=== PATIENT | male | born 1960 | race Caucasian/White ===

== ENCOUNTER 2017-07-10 09:12 | Inpatient (IN) | payer OTHER ==
[~2017-07-10] VITALS: Ht 182.9 cm; Wt 80.9 kg
[2017-07-10 10:46] LABS: BASOPHILS % 0.7 % (0.0-2.0); EOSINOPHILS % 0.5 % (0.0-7.0); HEMATOCRIT 40.9 % (42.0-52.0); HEMOGLOBIN 13.9 g/dl (14.0-18.0); LYMPHOCYTES # 1.4 10^3/ul (0.8-2.9); LYMPHOCYTES % 22.3 % (15.0-51.0); MEAN CORPUSCULAR HEMOGLOBIN 29.2 pg (29.0-33.0); MEAN CORPUSCULAR VOLUME 85.9 fl (82.0-101.0); MEAN PLATELET VOLUME 9.2 fl (7.4-10.4); MONOCYTE # 0.3 10^3/ul (0.3-0.9); MONOCYTES % 5.4 % (0.0-11.0); NEUTROPHIL # 4.4 10^3/ul (1.6-7.5); NEUTROPHILS % 70.9 % (39.0-77.0); PLATELET COUNT 248 10^3/UL (140-415); RED BLOOD COUNT 4.76 10^6/ul (4.70-6.10); RED CELL DISTRIBUTION WIDTH 12.5 % (11.5-14.5); WHITE BLOOD COUNT 6.1 10^3/ul (4.8-10.8)
[2017-07-10 10:56] LABS: INR 1.1; PARTIAL THROMBOPLASTIN TIME 31.5 Sec (25.0-35.0); PROTIME 14.4 Sec (11.9-14.9); PT RATIO 1.1
[2017-07-10 11:10] LABS: ALBUMIN 4.7 g/dl (3.3-4.9); ALBUMIN/GLOBULIN RATIO 1.3; BILIRUBIN,INDIRECT 0.5 mg/dl (0-1.1); BILIRUBIN,TOTAL 0.5 mg/dl (0.2-1.3); CALCIUM 9.1 mg/dl (8.4-10.2); CREATININE 0.89 mg/dl (0.61-1.24); TOTAL PROTEIN 8.3 g/dl (6.1-8.1)
--- NOTE | 2017-07-10 12:45 | RADRPT ---
PROCEDURE: CT abdomen and pelvis without contrast. CLINICAL INDICATION: Rectal bleeding TECHNIQUE: CT scan of the abdomen and pelvis without contrast was performed on a multi-slice CT [facility] . Sagittal and coronal reformatted images were obtained from the axial source images. One or more of the following dose reduction techniques were used: - Automated exposure control. - Adjustment of the mA and/or kV according to patient size. - Use of iterative reconstruction technique. DICOM images are available DLP 666.6 mGycm. CTDIvol 11.2 mGy COMPARISON: None FINDINGS: Fine detail of the soft tissues is limited secondary to the lack of IV contrast. Evaluation for enha ncing lesions cannot be performed. Lower thorax:The lung bases are clear. Liver: There is an oval-shaped hypodensity in the left hepatic lobe that measures 5.2 x 2.7 cm which is indeterminate. Biliary: The gallbladder is unremarkable without surrounding inflammation. No biliary dilatation. Pancreas: Homogeneous density of the pancreas without visible focal lesion or cystic abnormality . There is no pancreatic ductal dilatation. Spleen: Unremarkable without enlargement or focal lesion. Adrenal Glands: The adrenal glands are within normal limits without mass. Urinary: The kidneys are symmetric in size bilaterally. There are no visible renal or ureteral ston es. There is no hydronephrosis. Gastrointestinal: There is irregular ill-defined concentric wall thickening of the rectum with a tra ce amount of adjacent fat stranding. The proximal colon is distended with fecal material without obs truction. The appendix is not visualized. There is trace sigmoid diverticulosis without diverticulit is. Lymph nodes: There is a borderline lymph node to the left of the rectum that measures 6 mm on series 3, image 126. There are no other enlarged lymph nodes. Vascular: There is aortic atherosclerosis without aneurysmal dilatation. Peritoneum/mesentery: No free fluid or free air. Reproductive organs: The prostate is at the upper limits of normal in size. Musculoskeletal: Degenerative changes are seen in the lumbar spine with no acute osseous abnormalit y Other: None IMPRESSION: Indeterminate irregular concentric wall thickening of the distal rectum is seen with an adjacent bor derline lymph node. This could represent either the presence of a distal colonic mass or a focal col itis/proctitis. This can be correlated with direct visualization. There is an indeterminate hypodense mass within the left hepatic lobe. This can be further assessed with either hepatic protocol MRI or CT with contrast. There is a fecal filled colon without obstruction. There is diverticulosis without diverticulitis. T here is atherosclerotic disease present. RPTAT: AA .Camille Olmos MD, MD Date Time Electronically viewed and signed by .Camille Olmos MD, MD on 07/10/2017 12:44 .J/
[2017-07-10 13:32] VITALS: TEMP 98.3
[2017-07-10] MEDS ORDERED: ACETAMINOPHEN 325 MG TAB PO PRN ×2 (14:00→15:30)
[2017-07-10] MEDS ORDERED: ONDANSETRON 4 MG INJ IV PRN ×2 (14:00→15:30)
--- NOTE | 2017-07-10 15:08 | ERD ---
ER Documentation Chief Complaint Chief Complaint blood in stool x 5 since last night HPI 56-year-old previously healthy male presenting with blood in his stool for the past 12 hours. He states he was standing in his kitchen yesterday when he noticed some leakage from his rectum. He had no associated pain with this. He went to the bathroom and noticed he had blood leaking out of his rectum. He took a shower after which it stopped. 2 hours later he woke up with the same symptoms. Ever since then, every 2 hours he has had leakage from his rectum without attempting to have a bowel movement. The bleeding is intermittent. No associated abdominal or rectal pain. No associated fever, chills, dizziness, headache, chest pain, shortness of breath. He denies any history of rectal bleeding or ulcers. No family history of cancer or coagulopathy. No personal history of coagulopathy. Denies any constipation. ROS All systems reviewed and are negative except as per history of present illness. Medications Home Meds No Active Prescriptions or Reported Meds Allergies Allergies: Coded Allergies: No Known Allergy (Unverified , 07/10/17) PMhx/Soc History of Surgery: No Anesthesia Reaction: No Hx Neurological Disorder: No Hx Respiratory Disorders: No Hx Cardiac Disorders: No Hx Psychiatric Problems: No Hx Miscellaneous Medical Probl: Yes (HTN) Hx Alcohol Use: No Hx Substance Use: No Hx Tobacco Use: No Smoking Status: Former smoker FmHx Family History: No diabetes Physical Exam Vitals Vital Signs Date Time Temp Pulse Resp B/P Pulse Ox O2 Delivery O2 Flow Rate FiO2 07/10/17 15:01 98.2 64 16 132/86 100 Room Air 07/10/17 13:32 98.3 62 18 138/88 100 Room Air 07/10/17 12:04 98.3 58 16 149/94 100 Room Air 07/10/17 09:15 98.1 60 18 185/97 99 Physical Exam Const: Well-appearing, no apparent distress, very pleasant. Nontoxic Head: Atraumatic Eyes: Normal Conjunctiva ENT: Normal External Ears, Nose and Mouth. Neck: Full range of motion..~ No meningismus. Resp: Clear to auscultation bilaterally Cardio: Regular rate and rhythm, no murmurs. 2+ distal pulses Abd: Soft, non tender, non distended. No masses. Normal bowel sounds Rectal: Normal tone, No mass, nontender Stool: Brown with red blood Skin: No petechiae or rashes Back: No midline or flank tenderness Ext: No cyanosis, or edema Neur: Awake and alert Psych: Normal Mood and Affect Result Diagram: 07/10/17 1032 07/10/17 1032 Results 24 hrs Laboratory Tests Test 07/10/17 10:32 White Blood Count 6.110^3/ul Red Blood Count 4.7610^6/ul Hemoglobin 13.9g/dl Hematocrit 40.9% Mean Corpuscular Volume 85.9fl Mean Corpuscular Hemoglobin 29.2pg Mean Corpuscular Hemoglobin Concent 34.0g/dl Red Cell Distribution Width 12.5% Platelet Count 18145^3/UL Mean Platelet Volume 9.2fl Neutrophils % 70.9% Lymphocytes % 22.3% Monocytes % 5.4% Eosinophils % 0.5% Basophils % 0.7% Nucleated Red Blood Cells % 0.0/100WBC Neutrophils # 4.410^3/ul Lymphocytes # 1.410^3/ul Monocytes # 0.310^3/ul Eosinophils # 0.010^3/ul Basophils # 0.010^3/ul Nucleated Red Blood Cells # 0.010^3/ul Prothrombin Time 14.4Sec Prothrombin Time Ratio 1.1 INR International Normalized Ratio 1.10 Activated Partial Thromboplast Time 31.5Sec Sodium Level 142mmol/L Potassium Level 4.0mmol/L Chloride Level 102mmol/L Carbon Dioxide Level 28mmol/L Anion Gap 16 Blood Urea Nitrogen 22mg/dl Creatinine 0.89mg/dl Glucose Level 110mg/dl Calcium Level 9.1mg/dl Total Bilirubin 0.5mg/dl Direct Bilirubin 0.00mg/dl Indirect Bilirubin 0.5mg/dl Aspartate Amino Transf (AST/SGOT) 29IU/L Alanine Aminotransferase (ALT/SGPT) 37IU/L Alkaline Phosphatase 61IU/L Total Protein 8.3g/dl Albumin 4.7g/dl Globulin 3.60g/dl Albumin/Globulin Ratio 1.30 Current Medications Medications (Trade) Dose Ordered Sig/Aniya Route PRN Reason Start Time Stop Time Status Last Admin Dose Admin Ondansetron HCl (Zofran Inj) 4 mg BRIDGE ORDER PRN IV NAUSEA AND/OR VOMITING 07/10/17 14:00 07/11/17 13:59 Acetaminophen (Tylenol Tab) 650 mg ER BRIDGE PRN PO MILD PAIN/FEVER 07/10/17 14:00 07/11/17 13:59 Procedures/MDM EMERGENT LABS AND DIAGNOSTIC STUDIES: Lab Results above were reviewed and interpreted by me. CBC unremarkable BMP shows mild elevation of BUN, otherwise normal Coags within normal limits. Radiology Results as interpreted by Radiology below were reviewed by Ernie Land MD: CT abdomen and pelvis: IMPRESSION: Indeterminate irregular concentric wall thickening of the distal rectum is seen with an adjacent borderline lymph node. This could represent either the presence of a distal colonic mass or a focal colitis/proctitis. This can be correlated with direct visualization. There is an indeterminate hypodense mass within the left hepatic lobe. This can be further assessed with either hepatic protocol MRI or CT with contrast. There is a fecal filled colon without obstruction. There is diverticulosis without diverticulitis. There is atherosclerotic disease present. RPTAT: AA .Camille Olmos MD, MD Date Time Electronically viewed and signed by .Camille Olmos MD, on 07/10/2017 12:44 Initial Nursing notes reviewed. Previous Medical Records requested via the Electronic Health Record. EMERGENCY DEPARTMENT COURSE / MEDICAL DECISION MAKING: Patient is presenting with acute onset painless rectal bleeding with CT notable for rectal wall thickening. Vitals are stable. I have a low suspicion for proctitis. There is no evidence of severe GI hemorrhage. I doubt upper GI source. Differential includes but is not limited to AVM, diverticulosis, malignancy. Patient will be admitted for further workup. He will need a colonoscopy for further diagnosis. Patient agreeable with plan. I spoke with from [facility]. She will consult a GI specialist for colonoscopy. Plan was explained to the patient and he is agreeable. Departure Diagnosis: Primary Impression: Rectal bleeding Condition: KVNG Thompson MD Jul 10, 2017 15:08
[2017-07-10 15:20] VITALS: Ht 182.9 cm; Wt 80.9 kg
[2017-07-10 15:24] VITALS: BP 134/87; PULSE 72; RESP 18
[2017-07-10] MEDS ORDERED: morphine 2 MG INJ IV PRN (15:30)
[2017-07-10] MEDS ORDERED: hydrALAzine 20 MG INJ IV PRN (15:30)
[2017-07-10] MEDS ORDERED: BISACODYL 10 MG SUPP PR PRN (15:30)
[2017-07-10] MEDS ORDERED: MAGNESIUM HYDROXIDE 30ML CUP PO PRN (15:30)
[2017-07-10] MEDS ORDERED: DOCUSATE SODIUM 100 MG CAP PO PRN (15:30)
[2017-07-10] MEDS ORDERED: NACL 0.9% 3 ML SYG IV SCH (15:30)
--- NOTE | 2017-07-10 15:38 | HP ---
Date/Time of Note Date/Time of Note DATE: 07/10/17 TIME: 15:24 Assessment/Plan VTE Prophylaxis VTE Prophylaxis Intervention: SCD's Assessment/Plan Assessment/Plan 56-year-old male with: 1. Rectal bleeding, acute onset, possible rectal mass on CAT scan of the abdomen and pelvis. GI, Dr. Arora or his covering physician has been consulted Appreciate recommendations from gastroenterology, patient will be prepped for colonoscopy at least in the next 24 hours. Monitor hemoglobin Clear liquid diet and n.p.o. after midnight. IV fluids 2. Hypertension: She reports that he stopped treatment a few months ago and has been doing well, hydralazine as needed will be ordered Prophylaxis: SCDs for DVT prophylaxis, Pepcid for GI prophylaxis Disposition: Prep overnight for colonoscopy in the next 24 hours. HPI/ROS Admit Date/Time Admit Date/Time Jul 10, 2017 at 13:55 Hx of Present Illness Chief complaint: Rectal bleeding History of present illness: 56-year-old male with previous history of hypertension not recently treated, presented the emergency department with rectal bleeding. Patient reports that he had episode of small amount of blood with bowel movement 1 week ago, subsequently did not have any issues until last night. Last night he had episode of large amount of bright red blood per rectum , he had another episode this morning and since then every time he goes to the restroom to have a bowel movement, it is pure bright red blood that comes out and comes out and significant amount. He denies any nausea, vomiting, abdominal pain, fevers, chills, genitourinary complaints. He denies any previous history of diverticulitis or abdominal pain, he denies any family history of gastric or colorectal cancer. He denies any dizziness, lightheadedness. Hemoglobin was at 13.9 upon arrival in the ER. Patient is being admitted to a medical surgical bed for colonoscopy tomorrow. CAT scan of the abdomen and pelvis showed a possible ill shaped mass in the rectal. Gastroenterology has been consulted and already saw the patient. Patient will be prepped overnight for colonoscopy in a.m. ROS Constitutional: no complaints Eyes: no complaints ENT: no complaints Respiratory: no complaints Gastrointestinal: blood (Bright red blood per rectum) Genitourinary: no complaints Musculoskeletal: no complaints Skin: no complaints Neurologic: no complaints Endocrine: no complaints Lymphatic: no complaints Psychological: no complaints PMH/Family/Social Past Medical History Medical History: hypertension Past Surgical History Past Surgical Hx: no surgical history Family History Significant Family History: no pertinent family hx (Quit in 1998, smoked half a pack per day for 10 days) Social History Alcohol Use: none Smoking Status: Former smoker Drug Use: none Exam/Review of Systems Vital Signs Vitals Vital Signs Date Time Temp Pulse Resp B/P Pulse Ox O2 Delivery O2 Flow Rate FiO2 07/10/17 15:01 98.2 64 16 132/86 100 Room Air Exam Constitutional: alert, oriented Respiratory: clear to auscultation, normal air movement Cardiovascular: regular rate and rhythm Gastrointestinal: non-tender, soft Musculoskeletal: nl extremities to inspection, nl gait and stance Extremities: normal pulses, other (No edema, clubbing or cyanosis) Neurological: GLASS CLEANING MACHINE TENDER II-XII intact, nl mental status, nl speech, nl strength Labs Result Diagram: 07/10/17 1032 07/10/17 1032 Medications Medications Current Medications Sodium Chloride (NS) 1,000 ml @ 100 mls/hr Q10H IV ; Start 07/10/17 at 15:19; Status UNV Ondansetron HCl (Zofran Inj) 4 mg Q6H PRN IV NAUSEA AND/OR VOMITING; Start at 15:30; Status UNV Acetaminophen (Tylenol Tab) 650 mg Q6H PRN PO PAIN LEVEL 1-3 OR FEVER; Start 07/10/17 at 15:30; Status UNV Morphine Sulfate (morphine) 2 mg Q4H PRN IV SEVERE PAIN LEVEL 7-10; Start at 15:30; Status UNV Docusate Sodium (Colace) 100 mg Q12H PRN PO CONSTIPATION; Start 07/10/17 at 15 :30; Status UNV Magnesium Hydroxide (Milk Of Mag) 30 ml DAILY PRN PO CONSTIPATION; Start 07/10 at 15:30; Status UNV Bisacodyl (Dulcolax Supp) 10 mg DAILY PRN [place] CONSTIPATION; Start 07/10/17 at 15:30; Status UNV Famotidine (Pepcid) 20 mg Q12 PO ; Start 07/10/17 at 21:00; Status UNV Procedures Procedures PROCEDURE: CT abdomen and pelvis without contrast. CLINICAL INDICATION: Rectal bleeding TECHNIQUE: CT scan of the abdomen and pelvis without contrast was performed on a multi-slice CT scanner . Sagittal and coronal reformatted images were obtained from the axial source images. One or more of the following dose reduction techniques were used: - Automated exposure control. - Adjustment of the mA and/or kV according to patient size. - Use of iterative reconstruction technique. DICOM images are available DLP 666.6 mGycm. CTDIvol 11.2 mGy COMPARISON: None FINDINGS: Fine detail of the soft tissues is limited secondary to the lack of IV contrast. Evaluation for enhancing lesions cannot be performed. Lower thorax:The lung bases are clear. Liver: There is an oval-shaped hypodensity in the left hepatic lobe that measures 5.2 x 2.7 cm which is indeterminate. Biliary: The gallbladder is unremarkable without surrounding inflammation. No biliary dilatation. Pancreas: Homogeneous density of the pancreas without visible focal lesion or cystic abnormality. There is no pancreatic ductal dilatation. Spleen: Unremarkable without enlargement or focal lesion. Adrenal Glands: The adrenal glands are within normal limits without mass. Urinary: The kidneys are symmetric in size bilaterally. There are no visible renal or ureteral stones. There is no hydronephrosis. Gastrointestinal: There is irregular ill-defined concentric wall thickening of the rectum with a trace amount of adjacent fat stranding. The proximal colon is distended with fecal material without obstruction. The appendix is not visualized. There is trace sigmoid diverticulosis without diverticulitis. Lymph nodes: There is a borderline lymph node to the left of the rectum that measures 6 mm on series 3, image 126. There are no other enlarged lymph nodes. Vascular: There is aortic atherosclerosis without aneurysmal dilatation. Peritoneum/mesentery: No free fluid or free air. Reproductive organs: The prostate is at the upper limits of normal in size. Musculoskeletal: Degenerative changes are seen in the lumbar spine with no acute osseous abnormality Other: None IMPRESSION: Indeterminate irregular concentric wall thickening of the distal rectum is seen with an adjacent borderline lymph node. This could represent either the presence of a distal colonic mass or a focal colitis/proctitis. This can be correlated with direct visualization. There is an indeterminate hypodense mass within the left hepatic lobe. This can be further assessed with either hepatic protocol MRI or CT with contrast. There is a fecal filled colon without obstruction. There is diverticulosis without diverticulitis. There is atherosclerotic disease present. RPTAT: AA .Camille Olmos MD, MD Date Time Electronically viewed and signed by .Camille Olmos MD, on 07/10/2017 12:44 JAILENE OWENS Jul 10, 2017 15:36
--- NOTE | 2017-07-10 15:58 | CONS ---
Date/Time of Note Date/Time of Note DATE: 07/10/17 TIME: 15:42 Assessment/Plan Assessment/Plan Chief Complaint/Hosp Course Assessment: Rectal bleeding Hemoglobin stable Rule out liver mass Rule out rectal mass Plan: CT scan with contrast AFP, CEA, and CA 19-9 Colonoscopy tomorrow Clear liquids until midnight Monitor H&H Transfuse for hemoglobin less than 7.5 Consultation performed in collaboration with Dr. Arora Subjective: Patient is resting in bed comfortably. Denies any pain. Patient is having a bowel movement every 2 hours with no stool and it just bright red blood. He denies eating anything today. Patient never had colonoscopy. The need for the procedure has been explained to the patient and his son. Patient has been examined and interviewed. Course of treatment has been reviewed with nursing staff. All imaging and laboratory data has been reviewed. Problems: Consultation Date/Type/Reason Admit Date/Time Jul 10, 2017 at 13:55 Date of Consultation: Jul 10, 2017 Type of Consultation: GI Reason for Consultation Rectal bleeding Hx of Present Illness This is a 56-year-old male was admitted this morning for rectal bleeding. Patient reports bright red blood per rectum every 2 hours, he started bleeding last night at 1130. Patient recalls having one episode of hematochezia 1 week ago. He denies nausea, vomiting, hematemesis, abdominal pain, and rectal symptoms, any family history of colon CA, fever or malaise. Patient is generally in good health and not taking any medications. He was hypertensive in the past but with exercise and diet modification is able to keep his systolic reading below 140. He denies any surgical history including EGD or colonoscopy. He quit drinking 10 years ago, he is a former smoker, never used drugs. On the laboratory results his hemoglobin is 13.9. CT scan is positive for left hepatic lobe mass and thickening of the distal rectum with adjacent borderline lymph node possible mass versus colitis. The plan is to repeat CT scan with contrast, order blood work to screen for tumor markers, and preparation for colonoscopy for tomorrow. Course of action reviewed with the patient and his son at the bedside. Risks and benefits of the procedure have been explained. Patient is agreeable to the procedure. Gastrointestinal: no complaints (See HPI) Past Medical History History of hypertension Medical History: hypertension Past Surgical History None Past Surgical Hx: no surgical history Family History Significant Family History: heart disease (Father) Social History Lives with , daughter and 2 sons. 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 HEAD: Normocephalic, atraumatic, no tenderness. EYES: Pupils equal reactive to light and accommodation, full extraocular movements, sclera clear, non-icteric, no discharge. EARS/NOSE AND THROAT: Ears normal, nose normal, oropharynx normal, oral membranes well hydrated without lesions. NECK: Supple, no masses, thyroid normal, JVP within normal limits, carotids normal without bruits. CHEST: Inspection within normal limits. CARDIOVASCULAR: Heart: Regular rate and rhythm, no murmurs, gallops or rubs. Peripheral pulses present within normal limits, no cyanosis, clubbing or edemas. No pulsatile abdominal mass RESPIRATORY: Lungs clear to auscultation and percussion, no wheezing, no rubs GASTROINTESTINAL AND LIVER: Abdomen: Soft, non tenderness, non-distended, no hernias, no masses, no organomegaly, no ascites, no guarding, no rebound tenderness, normoactive bowel sounds. Rectal: Deferred. GENITOURINARY: Male genitalia within normal limits. EXTREMITIES: No cyanosis, clubbing or edema. Results Result Diagram: 07/10/17 1032 07/10/17 1032 Results 24 hrs Laboratory Tests Test 07/10/17 10:32 White Blood Count 6.1 Red Blood Count 4.76 Hemoglobin 13.9 L Hematocrit 40.9 L Mean Corpuscular Volume 85.9 Mean Corpuscular Hemoglobin 29.2 Mean Corpuscular Hemoglobin Concent 34.0 Red Cell Distribution Width 12.5 Platelet Count 248 Mean Platelet Volume 9.2 Neutrophils % 70.9 Lymphocytes % 22.3 Monocytes % 5.4 Eosinophils % 0.5 Basophils % 0.7 Nucleated Red Blood Cells % 0.0 Neutrophils # 4.4 Lymphocytes # 1.4 Monocytes # 0.3 Eosinophils # 0.0 Basophils # 0.0 Nucleated Red Blood Cells # 0.0 Prothrombin Time 14.4 Prothrombin Time Ratio 1.1 INR International Normalized Ratio 1.10 Activated Partial Thromboplast Time 31.5 Sodium Level 142 Potassium Level 4.0 Chloride Level 102 Carbon Dioxide Level 28 Anion Gap 16 Blood Urea Nitrogen 22 H Creatinine 0.89 Glucose Level 110 Calcium Level 9.1 Total Bilirubin 0.5 Direct Bilirubin 0.00 Indirect Bilirubin 0.5 Aspartate Amino Transf (AST/SGOT) 29 Alanine Aminotransferase (ALT/SGPT) 37 Alkaline Phosphatase 61 Total Protein 8.3 H Albumin 4.7 Globulin 3.60 H Albumin/Globulin Ratio 1.30 Medications Medications Current Medications Sodium Chloride (NS) 1,000 ml @ 100 mls/hr Q10H IV ; Start 07/10/17 at 15:19 Ondansetron HCl (Zofran Inj) 4 mg Q6H PRN IV NAUSEA AND/OR VOMITING; Start at 15:30 Acetaminophen (Tylenol Tab) 650 mg Q6H PRN PO PAIN LEVEL 1-3 OR FEVER; Start 07/10/17 at 15:30 Morphine Sulfate (morphine) 2 mg Q4H PRN IV SEVERE PAIN LEVEL 7-10; Start at 15:30 Docusate Sodium (Colace) 100 mg Q12H PRN PO CONSTIPATION; Start 07/10/17 at 15 :30 Magnesium Hydroxide (Milk Of Mag) 30 ml DAILY PRN PO CONSTIPATION; Start 07/10 at 15:30 Bisacodyl (Dulcolax Supp) 10 mg DAILY PRN [place] CONSTIPATION; Start 07/10/17 at 15:30 Famotidine (Pepcid) 20 mg Q12 PO ; Start 07/10/17 at 21:00 Hydralazine HCl (Apresoline) 10 mg Q8H PRN IV ELEVATED BLOOD PRESSURE; Start 07/10/17 at 15:30 Copies To: CC: MAKENNA ARORA MD, ANASTASIA NP Jul 10, 2017 15:53
[2017-07-10] MEDS ORDERED: BARIUM SULF 2% 450 ML BTL (BERRY SMOOTHIE) PO ONE (16:00)
[2017-07-10] MEDS ORDERED: BISACODYL (EC) 5 MG TAB PO ONE (16:00)
[2017-07-10] MEDS: SOD CHLORIDE 0.9% 1,000 ML IV SCH (16:09)
[2017-07-10] MEDS ORDERED: SOD CHLORIDE 0.9% 100 ML ONE (16:34)
[2017-07-10] MEDS ORDERED: IOHEXOL 300MG/ML 150 ML BTL ONE (16:34)
[2017-07-10 17:09] LABS: INR 1.08; PARTIAL THROMBOPLASTIN TIME 29.7 Sec (25.0-35.0); PROTIME 14.1 Sec (11.9-14.9); PT RATIO 1.1
[2017-07-10] MEDS ORDERED: MAGNESIUM CITRATE 300 ML BTL PO ONE (17:30)
[2017-07-10 17:34] LABS: CARCINOEMBRYONIC ANTIGEN 1.4 ng/ml (0.0-5.0)
[2017-07-10 17:38] LABS: CANCER ANTIGEN 19-9 13.4 U/ml (0.0-37.0)
[2017-07-10 17:54] LABS: BASOPHILS % 0.4 % (0.0-2.0); EOSINOPHILS % 0.1 % (0.0-7.0); HEMATOCRIT 32.2 % (42.0-52.0); LYMPHOCYTES # 1.4 10^3/ul (0.8-2.9); LYMPHOCYTES % 20.5 % (15.0-51.0); MEAN CORPUSCULAR HEMOGLOBIN 29.2 pg (29.0-33.0); MEAN CORPUSCULAR HGB CONC 34.2 g/dl (32.0-37.0); MEAN CORPUSCULAR VOLUME 85.4 fl (82.0-101.0); MEAN PLATELET VOLUME 9.5 fl (7.4-10.4); MONOCYTE # 0.4 10^3/ul (0.3-0.9); NEUTROPHIL # 5.2 10^3/ul (1.6-7.5); NEUTROPHILS % 73.9 % (39.0-77.0); PLATELET COUNT 237 10^3/UL (140-415); RED BLOOD COUNT 3.77 10^6/ul (4.70-6.10); RED CELL DISTRIBUTION WIDTH 12.6 % (11.5-14.5)
[2017-07-10] MEDS ORDERED: SOD CHLORIDE 0.9% 500 ML IV ONE (18:30)
[2017-07-10] MEDS ORDERED: POLYETHYLENE GLYCOL 3350 119 GM POWDER PO ONE (18:30)
[2017-07-10 18:36] LABS: HEMATOCRIT 34.8 % (42.0-52.0); HEMOGLOBIN 11.6 g/dl (14.0-18.0)
--- NOTE | 2017-07-10 18:47 | RADRPT ---
PROCEDURE: CT HEAD WITHOUT CONTRAST: CLINICAL INDICATION: 56-year of age male. Fall. Left forehead laceration. TECHNIQUE: CT of the head was performed without IV contrast. Coronal and sagittal reformatted images were obtained from the axial source images. Images were reviewed on a high-resolution PACS workstat ion. DICOM images are available. Dose information: The estimated radiation dose (CTDI vol mGy) for each series in this exam is 45. Th e estimated cumulative dose (DLP mGy-cm) is 720. One or more of the following dose reduction techniques were used: - Automated exposure control. - Adjustment of the mA and/or kV according to patient size. - Use of iterative reconstruction technique. COMPARISON: None available. FINDINGS: BRAIN PARENCHYMA: Negative for evidence of acute intraparenchymal hemorrhage, mass effect or large territory infarct. Corona-white matter differentiation is maintained. 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 VENTRICLES AND EXTRA-AXIAL SPACES: There is mild prominence of the sulci at the vertex. Ventricles are normal. Midline is central. 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 Basal cisterns are otherwise normal. No abnormal extra-axial fluid collections are identified. Negative for evidence of acute subarachnoi d or extra-axial hemorrhage. VASCULATURE: Mild intracranial atherosclerosis. VISUALIZED PARANASAL SINUSES AND MASTOID AIR CELLS: Visualized paranasal sinuses: Clear. Mastoid air cells: Clear. BONES: No focal abnormality. Additional comment: None. IMPRESSION: Negative for evidence of acute intracranial injury. Negative for evidence of acute intracranial hemo rrhage or mass effect. RPTAT: HCTS Physician Breanna Date Time Electronically viewed and signed by Physician Breanna on 07/10/2017 18:47 CS/
--- NOTE | 2017-07-10 18:52 | QN ---
Documentation Comment Patient was found on the floor at 6 11 pm, he fell and sustained head injury, he has a laceration on the left forehead, approximately 4 cm. The patient is alert oriented 4, he is able to answer all questions, he has told to the nurse that he was making some tea he felt diaphoretic and next thing he remembers is he was on the floor, according to the report he likely may have had a vasovagal episode and may have been near syncopal versus syncopal. Repeat hemoglobin is 11.6, patient has no previous history of cardiac disease or neurological disorder. He did sustain head injury therefore CAT scan of the head is ordered. He does have a laceration on his left forehead that needs to be sutured. I have contacted the emergency department and 1 of the physician special education educational assistant will assist with suturing. Serial H&H will be ordered. CT head noncontrast is negative for intracranial bleed. CT HEAD WITHOUT CONTRAST: CLINICAL INDICATION: 56-year of age male. Fall. Left forehead laceration. TECHNIQUE: CT of the head was performed without IV contrast. Coronal and sagittal reformatted images were obtained from the axial source images. Images were reviewed on a high-resolution PACS workstation. DICOM images are available. Dose information: The estimated radiation dose (CTDI vol mGy) for each series in this exam is 45. The estimated cumulative dose (DLP mGy-cm) is 720. One or more of the following dose reduction techniques were used: - Automated exposure control. - Adjustment of the mA and/or kV according to patient size. - Use of iterative reconstruction technique. COMPARISON: None available. FINDINGS: BRAIN PARENCHYMA: Negative for evidence of acute intraparenchymal hemorrhage, mass effect or large territory infarct. Corona-white matter differentiation is maintained. 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 VENTRICLES AND EXTRA-AXIAL SPACES: There is mild prominence of the sulci at the vertex. Ventricles are normal. Midline is central. There is a giant cisterna magna. Basal cisterns are otherwise normal. No abnormal extra-axial fluid collections are identified. Negative for evidence of acute subarachnoid or extra-axial hemorrhage. VASCULATURE: Mild intracranial atherosclerosis. VISUALIZED PARANASAL SINUSES AND MASTOID AIR CELLS: Visualized paranasal sinuses: Clear. Mastoid air cells: Clear. BONES: No focal abnormality. Additional comment: None. IMPRESSION: Negative for evidence of acute intracranial injury. Negative for evidence of acute intracranial hemorrhage or mass effect. Patient will be transferred to telemetry for closer monitoring while being prepped for the colonoscopy. Systolic blood pressure up in the 110's, NS bolus being ran. Repeat H&H within an hour with hemoglobin up to 11.6 from 11.0. JAILENE OWENS Jul 10, 2017 18:52
[2017-07-10 19:38] VITALS: PULSE 66
[2017-07-10 20:00] VITALS: BP 120/72; RESP 20
[2017-07-10 20:23] VITALS: PULSE 60
[2017-07-10] MEDS: FAMOTIDINE 20 MG TAB PO SCH (20:52)
--- NOTE | 2017-07-10 21:14 | RADRPT ---
PROCEDURE: CT Abdomen and Pelvis with contrast. CLINICAL INDICATION: Abdomen and pelvis pain. TECHNIQUE: CT scan of the abdomen and pelvis with contrast was performed. The patient was scanned following the uncomplicated intravenous administration of 100 cc of Omnipaque-300. Coronal and sag ittal reformatted images were obtained from the axial source images. Images were reviewed on a high- resolution PACS workstation. Total exam DLP is 520.74 mGy-cm. CTDIvol is 9.32 mGy. One or more of the following dose reduction techniques were used: Automated exposure control, adjustment of the mA and/or kV according to patient size, use of iterative reconstruction technique. DICOM images are av ailable. COMPARISON: Noncontrast CT scan of the abdomen and pelvis done earlier the same day. FINDINGS: The lung bases are normal. There is no pleural effusion. The liver is normal in size and attenuation. There is a mass in the left hepatic lobe anteriorly jyotsna suring 2.5 x 5.2 cm in AP and transverse dimensions. The mass demonstrates irregular peripheral enha ncement. There is a benign cyst in the left hepatic lobe measuring 0.4 cm. There is no other focal h epatic lesion. The gallbladder and bile ducts are normal. The spleen is normal in size. There is no focal splenic lesion. Both adrenals are normal with no enlargement or mass. The pancreas is unremarkable with no mass or evidence of pancreatitis. Both kidneys demonstrate normal contrast enhancement. There is an accessory right renal artery arisi ng from the aorta and extending to the right kidney inferiorly. There is no renal mass or hydronephr osis. The abdominal aorta is not dilated. There is calcification in the aorta consistent with atherosclero sis. There is no retroperitoneal lymphadenopathy or mass. There is no pelvic lymphadenopathy or mass. The bladder and distal ureters are normal. The periappendiceal region is unremarkable with no evidence of appendicitis. The appendix is well se en and appears normal. As seen on the prior scan, there is a possible rectal mass. The bowel and mesentery are otherwise no rmal. There is no free fluid or free gas. There are degenerative changes of the lower lumbar spine. IMPRESSION: 1. Mass in the left hepatic lobe anteriorly measuring 2.5 x 5.2 cm with irregular peripheral enhanc ement. This may be due to a benign hemangioma or metastatic disease. Correlation with MRI without an d with contrast advised. 2. Small benign cyst in the left hepatic lobe measuring 0.4 cm. 3. Accessory right renal artery supplying the lower right kidney. 4. Atherosclerosis. 5. Normal appendix. 6. Possible rectal mass. Correlation with colonoscopy or sigmoidoscopy advised. 7. Degenerative changes of the lower lumbar spine. RPTAT: QQ .Mega Stroud MD, MD Date Time Electronically viewed and signed by .Mega Stroud MD, on 07/10/2017 21:14 .R/
[2017-07-11] VITALS (19 sets, daily range): BP systolic 102–147; BP diastolic 58–76; PULSE 63–76; RESP 12–24
[2017-07-11 01:07] LABS: HEMATOCRIT 28.5 % (42.0-52.0)
[2017-07-11] MEDS: SOD CHLORIDE 0.9% 1,000 ML IV SCH ×2 (01:25→11:19)
[2017-07-11] MEDS ORDERED: POLYETHYLENE GLYCOL 3350 119 GM POWDER PO ONE (06:00)
[2017-07-11 07:06] LABS: BASOPHILS % 0.3 % (0.0-2.0); EOSINOPHILS % 0.1 % (0.0-7.0); HEMATOCRIT 28.2 % (42.0-52.0); HEMOGLOBIN 9.6 g/dl (14.0-18.0); LYMPHOCYTES # 1.8 10^3/ul (0.8-2.9); LYMPHOCYTES % 24.2 % (15.0-51.0); MEAN CORPUSCULAR HEMOGLOBIN 29.3 pg (29.0-33.0); MEAN PLATELET VOLUME 9.7 fl (7.4-10.4); MONOCYTE # 0.4 10^3/ul (0.3-0.9); MONOCYTES % 5.5 % (0.0-11.0); NEUTROPHIL # 5.1 10^3/ul (1.6-7.5); NEUTROPHILS % 69.6 % (39.0-77.0); PLATELET COUNT 207 10^3/UL (140-415); RED BLOOD COUNT 3.28 10^6/ul (4.70-6.10); RED CELL DISTRIBUTION WIDTH 12.8 % (11.5-14.5); WHITE BLOOD COUNT 7.3 10^3/ul (4.8-10.8)
[2017-07-11 07:40] LABS: ALBUMIN 3.3 g/dl (3.3-4.9); ALBUMIN/GLOBULIN RATIO 1.1; BILIRUBIN,INDIRECT 0.6 mg/dl (0-1.1); BILIRUBIN,TOTAL 0.6 mg/dl (0.2-1.3); CALCIUM 8.5 mg/dl (8.4-10.2); CREATININE 0.85 mg/dl (0.61-1.24); MAGNESIUM 2.2 mg/dl (1.7-2.5); PHOSPHORUS 3.4 mg/dl (2.5-4.9); TOTAL PROTEIN 6.3 g/dl (6.1-8.1)
[2017-07-11] MEDS ORDERED: BISACODYL (EC) 5 MG TAB PO ONE (08:00)
[2017-07-11] MEDS: FAMOTIDINE 20 MG TAB PO SCH ×2 (08:37→21:34)
[2017-07-11] MEDS ORDERED: INFLUENZA VIRUS VACCINE 0.5 ML SYG IM* ONE (09:00)
[2017-07-11] MEDS ORDERED: FENTAnyl 50 MCG/ML VIAL IV PRN (09:30)
[2017-07-11] MEDS ORDERED: ONDANSETRON 4 MG INJ IV PRN (09:30)
[2017-07-11] MEDS ORDERED: PROPOFOL 40 ML ONE (10:23)
[2017-07-11] MEDS ORDERED: LIDOCAINE 2% (SDV) 5 ML INJ ONE (10:24)
[2017-07-11] MEDS ORDERED: EPHEDrine SULFATE 50 MG/5 ML SYG ONE (10:50)
--- NOTE | 2017-07-11 11:45 | OPPN ---
Date/Time of Note Date/Time of Note DATE: 07/11/17 TIME: 11:44 Proc Note GI Procedure Date 07/11/17 Indication: diagnostic Pre-procedure Diagnosis Rectal bleeding Post-procedure Diagnosis Ulcerated 5 cm lesion in the rectum, 2-3 mm about dentate line Negative all the way into the cecum Melanosis coli Procedure Performed: Colonoscopy Surgeon see signature line Flat Lock Machine Operator none Anesthesia Type: MAC Tourniquet Time none EBL none Transfusion required none Biopsy 1: 5 biopsy Grafts/Implants none Tubes/Drains none Complication(s) none Disposition: PACU Procedure Description Dictated ROLF REICH MD Jul 11, 2017 11:45
--- NOTE | 2017-07-11 15:03 | PN ---
Date/Time of Note Date/Time of Note DATE: 07/11/17 TIME: 14:48 Assessment/Plan VTE Prophylaxis VTE Prophylaxis Intervention: anti-embolic stocking VTE Contraindication Reason: bleeding Lines/Catheters IV Catheter Type (from Nrs): Peripheral IV Central line still needed: No Urinary Cath still in place: No Assessment/Plan Problems: (1) Rectal bleeding Status: Acute Comment: S/P colonoscopy today. It is ulcerative mass S/P biopsy by GI Pain management. (2) Vaso vagal episode Status: Resolved Comment: It is related to dehydration /fall injury at the hospital CT brain was negative. IV fluid to be continued fall precaution (3) Dizziness and giddiness Status: Acute Comment: fall precaution IV fluid to be continued (4) Fall Status: Acute Comment: See management as mentioned as above Qualifiers: Encounter type: initial encounter Qualified Code: W19.XXXA - Fall, initial encounter (5) Anemia due to blood loss, acute Status: Acute Comment: The patient was having dizzy and fall yesterday. CT brain was negative, (6) Anemia due to GI blood loss Status: Acute Comment: folic acid /ferrous sulfate (7) HTN (hypertension) Status: Chronic Comment: BP meds given Qualifiers: Hypertension type: essential hypertension Qualified Code: I10 - Essential hypertension (8) Liver mass Status: Acute Comment: CT contrast showed liver mass possible metastatic cancer. (9) Metastasis to liver of unknown origin Status: Acute Comment: Waiting for biopsy for ulcerative rectal mass/most likely rectal cancer. (10) Rectal mass Status: Acute Comment: He has been doing better in this morning . He went from colonoscopy today. It was found to be ulcerative rectal wall S/P biopsy. No fever nor chill. He was not having any dizziness in this morning S/P colonoscopy with rectal mass biopsy 07/11/2017 Result pending Subjective 24 Hr Interval Summary Free Text/Dictation He is still having brown loosed stools. No dizziness . No fever nor chill. no coughing or productive sputum. Constitutional: improved, requiring IVF Eyes: No discharge, No no complaints, No other, No pain, No redness, No visual change ENT: No bleeding, No congestion, No discharge, No dysphagia, No no complaints, No other, No pain, No sore throat Respiratory: No cough, No no complaints, No other, No pain, No pleuritic pain, No shortness of breath, No sputum, No wheezing Cardiovascular: No chest pain, No edema, No lightheadedness, No no complaints, No orthopenea, No other, No palpitations, No paroxysmal nocturnal dyspnea Gastrointestinal: No blood, No constipation, No decreased appetite, No diarrhea , No flatus, No nausea, No no complaints, No other, No pain, No passing stool, No vomiting Musculoskeletal: No back pain, No bone/joint pain, No neck pain, No no complaints, No other, No restricted range of motion, No swelling Skin: No bruising, No erythema, No laceration, No no complaints, No other, No pruritis, No rash, No skin lesions Neurologic: No confusion, No dizziness, No focal-weakness, No headache, No no complaints, No other, No seizure, No syncope Endocrine: No dry skin, No no complaints, No other, No polydypsia, No polyuria , No temp intolerance Lymphatic: No adenopathy, No lymphadema, No no complaints, No other, No tender nodes Psychological: anxiety, No confusion, No depression, No nl mood/affect, No no complaints, No other, No suicidal Exam/Review of Systems Vital Signs Vitals Vital Signs Date Time Temp Pulse Resp B/P Pulse Ox O2 Delivery O2 Flow Rate FiO2 07/11/17 12:22 67 07/11/17 11:46 14 127/67 98 Room Air 07/11/17 11:21 2.0 07/11/17 11:07 97.9 Intake and Output 07/10/17 07/10/17 07/11/17 15:00 23:00 07:00 Intake Total 500 ml Balance 500 ml Exam He went from colonoscopy today. It was found to be ulcerative rectal wall S/P biopsy. Rectal bleed stopped since yesterday . No fever nor chill. He was not having any dizziness in this morning Constitutional: alert, oriented Head: atraumatic, normocephalic Eyes: EOMI, nl lids, nl sclera, other (mild anemai) ENMT: mucosa pink and moist, nl external ears & nose, nl lips & teeth, nl nasal mucosa & septum Neck: non-tender, supple, No bruits, No jvd, No masses, No nuchal rigidity, No other, No thyromegaly Respiratory: clear to auscultation, normal air movement, No congested cough, No crackles/rales, No diminished breath sounds, No intercostal retraction, No labored breathing, No other, No respirations, No tactile fremitus, No wheezing Cardiovascular: nl pulses, regular rate and rhythm, No S3, No S4, No bruits, No diastolic murmur, No edema, No gallop, No irregular rhythm, No jugular venous distention (JVD), No murmurs/extra sounds, No other, No rub, No systolic murmur Gastrointestinal: nl liver, spleen, non-tender, soft, No ascites, No bowel sounds, No distended, No firm, No hepatomegaly, No mass , No other, No rebound or guarding, No splenomegaly, No surgical scars, No tender Musculoskeletal: nl extremities to inspection, nl gait and stance, No joint tenderness, No muscle tone, No muscle weakness, No other, No range of motion, No spine non-tender, No swelling Extremities: normal pulses, No calf tenderness, No clubbing, No cyanosis, No edema, No other, No palpable cord, No pitting pedal edema, No tenderness Neurological: SERVICES REP II-XII intact, nl mental status, nl strength, No DTR's symmetric, No confused, No focal weakness, No lethargic, No nl speech, No numbness, No other, No reflexes, No unresponsive Skin: nl turgor Results Result Diagram: 07/11/17 0641 07/11/17 0641 Results 24 hrs Laboratory Tests Test 07/10/17 16:11 07/10/17 17:30 07/10/17 18:24 07/11/17 00:28 Prothrombin Time 14.1 Prothrombin Time Ratio 1.1 INR International Normalized Ratio 1.08 Activated Partial Thromboplast Time 29.7 Alpha Fetoprotein 2.28 Carcinoembryonic Antigen 1.4 CA 19-9 Antigen 13.4 White Blood Count 7.0 Red Blood Count 3.77 #L Hemoglobin 11.0 #L 11.6 L 10.0 L Hematocrit 32.2 #L 34.8 L 28.5 L Mean Corpuscular Volume 85.4 Mean Corpuscular Hemoglobin 29.2 Mean Corpuscular Hemoglobin Concent 34.2 Red Cell Distribution Width 12.6 Platelet Count 237 Mean Platelet Volume 9.5 Neutrophils % 73.9 Lymphocytes % 20.5 Monocytes % 5.0 Eosinophils % 0.1 Basophils % 0.4 Nucleated Red Blood Cells % 0.0 Neutrophils # 5.2 Lymphocytes # 1.4 Monocytes # 0.4 Eosinophils # 0.0 Basophils # 0.0 Nucleated Red Blood Cells # 0.0 Test 07/11/17 06:41 White Blood Count 7.3 Red Blood Count 3.28 L Hemoglobin 9.6 L Hematocrit 28.2 L Mean Corpuscular Volume 86.0 Mean Corpuscular Hemoglobin 29.3 Mean Corpuscular Hemoglobin Concent 34.0 Red Cell Distribution Width 12.8 Platelet Count 207 Mean Platelet Volume 9.7 Neutrophils % 69.6 Lymphocytes % 24.2 Monocytes % 5.5 Eosinophils % 0.1 Basophils % 0.3 Nucleated Red Blood Cells % 0.0 Neutrophils # 5.1 Lymphocytes # 1.8 Monocytes # 0.4 Eosinophils # 0.0 Basophils # 0.0 Nucleated Red Blood Cells # 0.0 Sodium Level 141 Potassium Level 4.0 Chloride Level 105 Carbon Dioxide Level 30 Anion Gap 10 # Blood Urea Nitrogen 16 Creatinine 0.85 Glucose Level 123 Calcium Level 8.5 Phosphorus Level 3.4 Magnesium Level 2.2 Total Bilirubin 0.6 Direct Bilirubin 0.00 Indirect Bilirubin 0.6 Aspartate Amino Transf (AST/SGOT) 22 Alanine Aminotransferase (ALT/SGPT) 31 Alkaline Phosphatase 40 L Total Protein 6.3 # Albumin 3.3 # Globulin 3.00 Albumin/Globulin Ratio 1.10 Medications Medications Current Medications Sodium Chloride (NS) 1,000 ml @ 100 mls/hr Q10H IV Last administered on t 01:25; Admin Dose 100 MLS/HR; Start 07/10/17 at 15:19 Ondansetron HCl (Zofran Inj) 4 mg Q6H PRN IV NAUSEA AND/OR VOMITING; Start at 15:30 Acetaminophen (Tylenol Tab) 650 mg Q6H PRN PO PAIN LEVEL 1-3 OR FEVER; Start 07/10/17 at 15:30 Morphine Sulfate (morphine) 2 mg Q4H PRN IV SEVERE PAIN LEVEL 7-10; Start at 15:30 Docusate Sodium (Colace) 100 mg Q12H PRN PO CONSTIPATION; Start 07/10/17 at 15 :30 Magnesium Hydroxide (Milk Of Mag) 30 ml DAILY PRN PO CONSTIPATION; Start 07/10 at 15:30 Bisacodyl (Dulcolax Supp) 10 mg DAILY PRN RI CONSTIPATION; Start 07/10/17 at 15:30 Famotidine (Pepcid) 20 mg Q12 PO Last administered on 07/10/17t 20:52; Admin Dose 20 MG; Start 07/10/17 at 21:00 Hydralazine HCl (Apresoline) 10 mg Q8H PRN IV ELEVATED BLOOD PRESSURE; Start 07/10/17 at 15:30 LYNDA DEL CID MD Jul 11, 2017 14:58
--- NOTE | 2017-07-11 15:04 | GILP ---
DATE OF PROCEDURE: INDICATION: A 56-year-old male undergoing this procedure for rectal bleeding and anemia. His hemat ocrit was 28. CAT scan shows abnormal finding, thickening of the rectum. INFORMED CONSENT: The risk of the procedure, related and unrelated complications, anesthetic risks, alternatives discussed and informed consent was obtained. DESCRIPTION OF PROCEDURE: The patient was brought to the GI lab, sedated by Dr. Stone. After optima l sedation, scope was passed with much ease into rectum and there was a big mass identified, size gr eater than that of a quarter, ulcerated, and hard in consistency. The scope was advanced through si gmoid, descending, transverse colon all the way into cecum and finally into terminal ileum. No othe r gross lesion was identified. No polyps, no diverticula seen. Patient had extensive melanosis col i involving the entire colon. The terminal ileum was normal. While coming out, mucosa thoroughly i nspected. There were particles of collection of opaque colored liquidy stool at different angulatio ns precluding the visibility, but 90% grossly it was normal. Five biopsies obtained from the rectal mass. On rectal examination, also it was felt hard in consistency. Scope was removed with good pa tient tolerance. IMPRESSION: 1. Rectal mass, about 4 to 5 cm in diameter with ulceration in the center. Definitely endoscopical ly consistent with a malignancy. It is just probably 4 to 5 mm above dentate line. 2. Negative all the way into cecum. 3. Negative terminal ileum. 4. Melanosis coli. PLAN: 1. Review histopathology. 2. Patient needs a neoadjuvant therapy, so needs oncology consult. 3. He needs ____ staging purpose. If the patient needs ____ staging purpose and also to look for t he lymph node. After neoadjuvant chemotherapy, would need a surgical consult. 4. This patient will be followed by Dr. Arora. Dictated By: ROLF MARLEY/JEFE Conf#: [id number] DID#: [id number] CC: MAKENNA ARORA; ROLF REICH MD; JAILENE OWENS MD;*EndCC*
[2017-07-11 15:09] LABS: HEMATOCRIT 26.3 % (42.0-52.0); HEMOGLOBIN 9.1 g/dl (14.0-18.0)
[2017-07-11] MEDS: POLYSACCHARIDE IRON COMPLEX CAP PO SCH (17:24)
[2017-07-11 19:07] LABS: HEMATOCRIT 24.7 % (42.0-52.0); HEMOGLOBIN 8.6 g/dl (14.0-18.0)
[2017-07-12] VITALS (10 sets, daily range): BP systolic 114–169; BP diastolic 59–79; PULSE 53–66; RESP 17–19
[2017-07-12] MEDS: POLYSACCHARIDE IRON COMPLEX CAP PO SCH (07:56)
[2017-07-12] MEDS: FAMOTIDINE 20 MG TAB PO SCH (08:16)
[2017-07-12 08:50] LABS: BASOPHILS % 0.7 % (0.0-2.0); EOSINOPHILS % 0.5 % (0.0-7.0); HEMATOCRIT 27.8 % (42.0-52.0); HEMOGLOBIN 9.5 g/dl (14.0-18.0); LYMPHOCYTES # 1.3 10^3/ul (0.8-2.9); LYMPHOCYTES % 23.8 % (15.0-51.0); MEAN CORPUSCULAR HEMOGLOBIN 29.4 pg (29.0-33.0); MEAN CORPUSCULAR HGB CONC 34.2 g/dl (32.0-37.0); MEAN CORPUSCULAR VOLUME 86.1 fl (82.0-101.0); MEAN PLATELET VOLUME 9.6 fl (7.4-10.4); MONOCYTE # 0.4 10^3/ul (0.3-0.9); MONOCYTES % 7.1 % (0.0-11.0); NEUTROPHIL # 3.8 10^3/ul (1.6-7.5); NEUTROPHILS % 67.9 % (39.0-77.0); PLATELET COUNT 212 10^3/UL (140-415); RED BLOOD COUNT 3.23 10^6/ul (4.70-6.10); WHITE BLOOD COUNT 5.6 10^3/ul (4.8-10.8)
[2017-07-12] MEDS ORDERED: FOLIC ACID 1 MG TAB PO SCH (09:00)
[2017-07-12 09:43] LABS: ALBUMIN 3.8 g/dl (3.3-4.9); ALBUMIN/GLOBULIN RATIO 1.22; BILIRUBIN,INDIRECT 0.5 mg/dl (0-1.1); BILIRUBIN,TOTAL 0.5 mg/dl (0.2-1.3); CREATININE 0.92 mg/dl (0.61-1.24); TOTAL PROTEIN 6.9 g/dl (6.1-8.1)
--- NOTE | 2017-07-12 10:16 | PN ---
Date/Time of Note Date/Time of Note DATE: 07/12/17 TIME: 10:09 Assessment/Plan VTE Prophylaxis VTE Prophylaxis Intervention: SCD's Lines/Catheters IV [facility]from [facility] Saline Lock Urinary Cath still in place: No Assessment/Plan Chief Complaint/Hosp Course Assessment: Rectal bleeding Colonoscopy 07/11/17 IMPRESSION: 1. Rectal mass, about 4 to 5 cm in diameter with ulceration in the center. Definitely endoscopically consistent with a malignancy. It is just probably 4 to 5 mm above dentate line. 2. Negative all the way into cecum. 3. Negative terminal ileum. 4. Melanosis coli. Rule out liver mass Rule out rectal mass- Adenocarcinoma Plan: Review histopathology. Rectum, mass, biopsies: Adenocarcinoma, well to moderately differentiated. Patient needs a neoadjuvant therapy Needs oncology consult. He needs eus staging purpose. If the patient needs eus staging purpose and also to look for the lymph node. After neoadjuvant chemotherapy, would need a surgical consult. AFP, CEA, and CA 19-9- negative Monitor H&H Transfuse for hemoglobin less than 7.5 Patient seen in collaboration with Dr. Arora Subjective: Course reviewed with nursing staff Patient interviewed and examined All labs, imaging and other results reviewed Discussed results of colonoscopy with patient, will need onc consult- will obtain MRI abd today for further work-up. Pt cleared from GI to be d/c'd MUST f/u with onc as out-pt. PHYSICAL EXAMINATION: GENERAL: Well developed, well nourished, alert & oriented x 3, in no acute distress SKIN: No lesions, no stigmata chronic liver disease, no evidence of bleeding diathesis LYMPHATIC: No palpable lymphadenopathy. HEAD: Normocephalic, atraumatic, no tenderness. EYES: Pupils equal reactive to light and accommodation, full extraocular movements, sclera clear, non-icteric, no discharge. EARS/NOSE AND THROAT: Ears normal, nose normal, oropharynx normal, oral membranes well hydrated without lesions. NECK: Supple, no masses, thyroid normal, JVP within normal limits, carotids normal without bruits. CHEST: Inspection within normal limits. CARDIOVASCULAR: Heart: Regular rate and rhythm, no murmurs, gallops or rubs. Peripheral pulses present within normal limits, no cyanosis, clubbing or edemas. No pulsatile abdominal mass RESPIRATORY: Lungs clear to auscultation and percussion, no wheezing, no rubs GASTROINTESTINAL AND LIVER: Abdomen: Soft, non tenderness, non-distended, no hernias, no masses, no organomegaly, no ascites, no guarding, no rebound tenderness, normoactive bowel sounds. Rectal: Deferred. GENITOURINARY: Male genitalia within normal limits. EXTREMITIES: No cyanosis, clubbing or edema. Problems: Exam/Review of Systems Vital Signs Vitals Vital Signs Date Time Temp Pulse Resp B/P Pulse Ox O2 Delivery O2 Flow Rate FiO2 07/12/17 08:00 58 07/12/17 07:44 97.8 17 114/65 98 07/11/17 11:46 Room Air 07/11/17 11:21 2.0 Intake and Output 07/11/17 07/11/17 07/12/17 15:00 23:00 07:00 Intake Total 600 ml 900 ml 90 ml Balance 600 ml 900 ml 90 ml Results Result Diagram: 07/12/17 0807/12/17 0823 Results 24 hrs Laboratory Tests Test 07/11/17 14:44 07/11/17 18:40 07/12/17 08:23 Hemoglobin 9.1 L 8.6 L 9.5 L Hematocrit 26.3 L 24.7 L 27.8 L White Blood Count 5.6 # Red Blood Count 3.23 L Mean Corpuscular Volume 86.1 Mean Corpuscular Hemoglobin 29.4 Mean Corpuscular Hemoglobin Concent 34.2 Red Cell Distribution Width 13.0 Platelet Count 212 Mean Platelet Volume 9.6 Neutrophils % 67.9 Lymphocytes % 23.8 Monocytes % 7.1 Eosinophils % 0.5 Basophils % 0.7 Nucleated Red Blood Cells % 0.0 Neutrophils # 3.8 Lymphocytes # 1.3 Monocytes # 0.4 Eosinophils # 0.0 Basophils # 0.0 Nucleated Red Blood Cells # 0.0 Sodium Level 141 Potassium Level 4.0 Chloride Level 104 Carbon Dioxide Level 29 Anion Gap 12 Blood Urea Nitrogen 10 Creatinine 0.92 Glucose Level 102 Calcium Level 9.0 Total Bilirubin 0.5 Direct Bilirubin 0.00 Indirect Bilirubin 0.5 Aspartate Amino Transf (AST/SGOT) 25 Alanine Aminotransferase (ALT/SGPT) 32 Alkaline Phosphatase 44 Total Protein 6.9 Albumin 3.8 Globulin 3.10 Albumin/Globulin Ratio 1.22 Medications Medications Current Medications Ondansetron HCl (Zofran Inj) 4 mg Q6H PRN IV NAUSEA AND/OR VOMITING; Start at 15:30 Acetaminophen (Tylenol Tab) 650 mg Q6H PRN PO PAIN LEVEL 1-3 OR FEVER; Start 07/10/17 at 15:30 Morphine Sulfate (morphine) 2 mg Q4H PRN IV SEVERE PAIN LEVEL 7-10; Start at 15:30 Docusate Sodium (Colace) 100 mg Q12H PRN PO CONSTIPATION; Start 07/10/17 at 15 :30 Magnesium Hydroxide (Milk Of Mag) 30 ml DAILY PRN PO CONSTIPATION; Start 07/10 at 15:30 Bisacodyl (Dulcolax Supp) 10 mg DAILY PRN MD CONSTIPATION; Start 07/10/17 at 15:30 Famotidine (Pepcid) 20 mg Q12 PO Last administered on 07/12/17 08:16; Admin Dose 20 MG; Start 07/10/17 at 21:00 Hydralazine HCl (Apresoline) 10 mg Q8H PRN IV ELEVATED BLOOD PRESSURE; Start 07/10/17 at 15:30 Folic Acid (Folic Acid) 1 mg DAILY PO Last administered on 07/12/17 08:16; Admin Dose 1 MG; Start 07/12/17 at 09:00 MARELY ODOM Jul 12, 2017 10:16
[2017-07-12] MEDS ORDERED: SENN15TA PO (10:27)
[2017-07-12] MEDS ORDERED: NIF150 PO (10:27)
[2017-07-12] MEDS ORDERED: FOLI-49 PO (10:27)
--- NOTE | 2017-07-12 10:42 | PDOCDIS ---
Discharge Instructions DIAGNOSIS Discharge Diagnosis 1.Adenocarcinoma of colon,well to moderate differential 2.acute blood loss anemia 3.syncopal episode due to dehydration 4.Liver mass CONDITION Patient Condition: Fair HOME CARE INSTRUCTIONS: Diet Instructions: RegularSpecial Diet: clear liquid ACTIVITY: Activity Restrictions: Slowly Increase Activity FOLLOW UP/APPOINTMENTS Follow-up Plan F/U with oncologist and have Port -A Cath done at oncologist clinic in 1 week F/U with Dr. Arora in 1-2 week F/U with primary care in 1-2 week. SCHOOL/WORK RELEASE May return to School/Work on: Jul 24, 2017 May return to School/Work with: No Restrictions LYNDA DEL CID MD Jul 12, 2017 10:42
--- NOTE | 2017-07-12 10:43 | DS ---
Date/Time of Note Date/Time of Note DATE: 07/12/17 TIME: 10:42 Discharge Summary Admission/Discharge Info Admit Date/Time Jul 10, 2017 at 13:55 Discharge Date/Time 07/12/2017 Discharge Diagnosis 1.Adenocarcinoma of colon,well to moderate differential 2.acute blood loss anemia 3.syncopal episode due to dehydration 4.Liver mass Patient Condition: Fair Consults Dr.Piyush Mckinney. Procedures Colonoscopy with rectal mass biopsy on Hx of Present Illness History of present illness: 56-year-old male with significant medical illness of hypertension not recently treated, presented the emergency department with rectal bleeding. Patient reported that he had episode of small amount of blood with bowel movement 1 week ago, subsequently did not have any issues until last night. Last night he had episode of large amount of bright red blood per rectum , he had another episode this morning and since then every time he went to the restroom to have a bowel movement, it is pure bright red blood that comes out and comes out and significant amount. He denied any nausea, vomiting, abdominal pain, fevers, chills, genitourinary complaints. He denies any previous history of diverticulitis or abdominal pain, he denies any family history of gastric or colorectal cancer. Hemoglobin was at 13.9 upon arrival in the ER. Hospital Course This is a 56-year-old male with significant medical illness of hypertension not recently treated, presented the emergency department with rectal bleeding. Patient reported that he had episode of small amount of blood with bowel movement 1 week ago, subsequently did not have any issues until last night. Last night he had episode of large amount of bright red blood per rectum, he had another episode this morning and since then every time he went to the restroom to have a bowel movement, it is pure bright red blood that comes out and comes out and significant amount. He denied any nausea, vomiting, abdominal pain, fevers, chills, genitourinary complaints. He denies any previous history of diverticulitis or abdominal pain, he denies any family history of gastric or colorectal cancer. Hemoglobin was at 13.9 upon arrival in the ER. Patient is being admitted to a medical surgical bed for colonoscopy on 2016. 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 There is an oval-shaped hypodensity in the left hepatic lobe that measures 5.2 x 2.7 cm He was admitted to Telemetry monitoring after syncopal episode. After colonoscopy and rectal mass biopsy,thee is no further rectal bleeding. No abdomen pain nor brown or black stool. His hemoglobin was stable at 9.5 without any dizziness /lightheadedness. Vital Signs Date Time Temp Pulse Resp B/P Pulse Ox O2 Delivery O2 Flow Rate FiO2 07/12/17 12:00 53 07/12/17 11:42 97.5 19 139/69 98 07/11/17 11:46 Room Air 07/11/17 11:21 2.0 Const: Afebrile ,alert and oriented to person,place and time. Head: Atraumatic head Eyes: Mild pallor but normal conjunctiva ENT: Normal External Ears, Nose and Mouth. Neck: Full range of motion. No meningismus. Resp: Clear to auscultation bilaterally. Cardio: Regular rate and rhythm, no murmurs. Abd: Soft, non tender, non distended. Normal bowel sounds. Skin: No petechiae or rash. Back: No midline or flank tenderness. Ext: No cyanosis, or edema. Neuro: Awake and alert Psych: Normal Mood and Affect. He needs to be seen by our oncologist for adenocarcinoma of rectum treatment and outpatient Port -A -Cath at our oncologist clinic in 1 week. He needs to follow up with [facility] Gill for EUS due to staging in 1-2 week. Regular diet . Increased activity as tolerate He can go back to work on 07/24/2017 at the same position without any restriction. Home Meds Active Scripts Sennosides (LAXATIVE) 15 Mg Tab.chew, 15 MG PO bedtime for CONSTIPATION for 30 Days, #30 TAB.CHEW 1 Refill Prov:LYNDA DEL CID MD 07/12/17 Folic Acid* (Folic Acid*) 1 Mg Tablet, 1 MG PO DAILY for 30 Days, #30 TAB 2 Refills Prov:LYNDA DEL CID MD 07/12/17 Polysaccharide Iron Complex* (NIFEREX-150*) 1 Cap Cap, 1 CAP PO BID WITH MEALS for 60 Days, #30 CAP 3 Refills Prov:LYNDA DEL CID MD 07/12/17 Follow-up Plan F/U with oncologist and have Port -A Cath done at oncologist clinic in 1 week F/U with Dr. Arora for EUS in 1-2 week F/U with primary care in 1-2 week. Primary Care Provider Care Physician No Primary Time spent on discharge: > 30 minutes Pending Labs Laboratory Tests Test 07/11/17 14:44 07/11/17 18:40 07/12/17 08:23 Hemoglobin 9.1g/dl (14.0-18.0) 8.6g/dl (14.0-18.0) 9.5g/dl (14.0-18.0) Hematocrit 26.3% (42.0-52.0) 24.7% (42.0-52.0) 27.8% (42.0-52.0) White Blood Count 5.610^3/ul (4.8-10.8) Red Blood Count 3.2310^6/ul (4.70-6.10) Mean Corpuscular Volume 86.1fl (82.0-101.0) Mean Corpuscular Hemoglobin 29.4pg (29.0-33.0) Mean Corpuscular Hemoglobin Concent 34.2g/dl (32.0-37.0) Red Cell Distribution Width 13.0% (11.5-14.5) Platelet Count 93451^3/UL (140-415) Mean Platelet Volume 9.6fl (7.4-10.4) Neutrophils % 67.9% (39.0-77.0) Lymphocytes % 23.8% (15.0-51.0) Monocytes % 7.1% (0.0-11.0) Eosinophils % 0.5% (0.0-7.0) Basophils % 0.7% (0.0-2.0) Nucleated Red Blood Cells % 0.0/100WBC (0.0-0.0) Neutrophils # 3.810^3/ul (1.6-7.5) Lymphocytes # 1.310^3/ul (0.8-2.9) Monocytes # 0.410^3/ul (0.3-0.9) Eosinophils # 0.010^3/ul (0.0-0.5) Basophils # 0.010^3/ul (0.0-0.1) Nucleated Red Blood Cells # 0.010^3/ul (0.0-0.0) Sodium Level 141mmol/L (135-144) Potassium Level 4.0mmol/L (3.5-5.1) Chloride Level 104mmol/L (97-110) Carbon Dioxide Level 29mmol/L (21-31) Anion Gap 12 (8-16) Blood Urea Nitrogen 10mg/dl (7-20) Creatinine 0.92mg/dl (0.61-1.24) Glucose Level 102mg/dl (70-220) Calcium Level 9.0mg/dl (8.4-10.2) Total Bilirubin 0.5mg/dl (0.2-1.3) Direct Bilirubin 0.00mg/dl (0.00-0.20) Indirect Bilirubin 0.5mg/dl (0-1.1) Aspartate Amino Transf (AST/SGOT) 25IU/L (15-46) Alanine Aminotransferase (ALT/SGPT) 32IU/L (13-69) Alkaline Phosphatase 44IU/L (42-121) Total Protein 6.9g/dl (6.1-8.1) Albumin 3.8g/dl (3.3-4.9) Globulin 3.10g/dl (1.3-3.2) Albumin/Globulin Ratio 1.22 Copies To: CC: MAKENNA ARORA MD, NARUCHON MD Jul 12, 2017 10:43
--- NOTE | 2017-07-13 09:23 | RADRPT ---
PROCEDURE: MR Abdomen. CLINICAL INDICATION: Rectal bleeding TECHNIQUE: MRI abdomen without contrast was performed on the a high-resolution, high [facility] scanner. Patient was examined without IV contrast. Images were reviewed on a [employer] PACS workstation. COMPARISON: CT 07/10/2017 FINDINGS: MRI Abdomen: Lung bases are clear. The heart size is within normal limits. There is no significant pericardial ef fusion. There is a predominately T2 hyperintense mass measuring 4.1 x 2.6 cm within segment 2 of the liver. There is peripheral nodular enhancement, with centripetal flow and on multi phase post contrast sequ ences, with near complete fill in on delayed phase sequences. Findings are most consistent with a ca vernous hemangioma. There is a wedge-shaped area of are arterial enhancement within segment VIII of the liver, likely transient hepatic hyperintensity. No other gross abnormal enhancing masses or lesi ons within the liver. Several small cysts are noted within the posterior right lobe liver. The gallb ladder appears to be within normal limits. No gross abnormal filling defects. Common bile duct is wi thin limits. The spleen and pancreas are within normal limits. Both adrenal glands are within normal limits. Both kidneys are and normal anatomic position. Several small cysts are noted within both kidneys. No evidence of obstruction or hydronephrosis. The visualized GI tract demonstrate normal caliber loops of small and large bowel. No evidence of casey wel obstruction. The aorta is within normal limits. No significant retroperitoneal lymphadenopathy. The visualized osseous structures demonstrates normal marrow signal. The spinal canal appears to be within normal limits. IMPRESSION: 1. 4.1 x 2.6 cm T2 hyperintense mass within segment 2 of the liver, with enhancement characteristic s most consistent with a benign cavernous hemangioma. 2. Several small cysts within the right lobe liver. There is an area of wedge-shaped hyperintensity on arterial phase within segment 8 of the liver, likely transient hepatic hyperintensity. No other gross abnormal enhancing masses or lesions within the liver. 3. Gallbladder appears to be within normal limits. 4. Small bilateral renal cysts. No evidence of obstruction or hydronephrosis. RPTAT: AAPP Jasony Lue, Physician Date Time Electronically viewed and signed by Lincoln Rhodes Physician on 07/13/2017 09:23 BRETT/
== END 2017-07-12 17:50 | disposition home or self-care (01) | DRG 375 ==
LOC: E/R 09:12 → MS2 13:55 → TEL 19:15
PROVIDERS: ADMIT Internal Medicine; ATTEND Internal Medicine
PROC: 0DBP8ZX Excision of Rectum, Via Natural or Artificial Opening Endoscopic, Diagnostic (ICD-10-PCS; principal; 2017-07-11 12:00)
DX: C18.9 Malignant neoplasm of colon, unspecified (principal); K62.5 Hemorrhage of anus and rectum; D62 Acute posthemorrhagic anemia; C78.7 Secondary malignant neoplasm of liver and intrahepatic bile duct; E86.0 Dehydration; W19.XXXA Unspecified fall, initial encounter; I10 Essential (primary) hypertension; Z87.891 Personal history of nicotine dependence; S01.81XA Laceration without foreign body of other part of head, initial encounter; Y92.239 Unspecified place in hospital as the place of occurrence of the external cause
CPT/HCPCS: 36415; 70450; 74176; 74177; 74183; 80053; 82105; 82378; 83735; 84100; 85014; 85018; 85025; 85610; 85730; 86301; 86850; 86900; 86901; 88305; 90686; J7030; J7040; Q9967